=== PATIENT | male | born 1930 | race Caucasian/White ===

== ENCOUNTER 2016-11-06 16:05 | Emergency (ER) | payer MEDICARE ==
[2016-11-06] MEDS ORDERED: Naproxen 500 MG TAB ONE (16:38)
[2016-11-06] MEDS ORDERED: HYDROcodone/Acetaminophen 10/325 mg Tablet ONE (16:38)
--- NOTE | 2016-11-06 17:56 | RAD ---
TWO VIEWS LEFT SHOULDER: History: Fall. FINDINGS: AP and scapular Y views of the left shoulder demonstrate no evidence of left shoulder fracture, subl uxations, or bony lesions. IMPRESSION: Normal two views left shoulder. POS: [facility]
--- NOTE | 2016-11-06 17:57 | RAD ---
TWO VIEWS LEFT HUMERUS: Date: 11-06-16 History: Fall. FINDINGS: AP and lateral views of the left humerus obtained. The left humerus is unremarkable. No evidence of left humeral fractures, subluxations, or bony lesions seen. IMPRESSION: Normal two views left humerus. POS: [facility]
--- NOTE | 2016-11-06 17:59 | RAD ---
THREE VIEWS LEFT SHOULDER: History: Fall Technique: AP internally, externally, and scapula Y views of the left shoulder obtained. FINDINGS: Three views left shoulder demonstrate no evidence of left shoulder fractures, subluxations, or bony lesions. IMPRESSION: Normal three views left shoulder. POS: [facility]
--- NOTE | 2016-11-06 18:27 | RAD ---
THREE VIEWS LUMBAR SPINE: History: Fall, back pain. FINDINGS: AP, lateral, and coned down views of the lumbar spine obtained. Five non rib bearing lumbar vertebral are seen. Anterior osteophytes seen involving the L3, L4, and L5 levels. Disc spaces are well maintained. There is calcification of the aorta. No significant evid ence of lumbar spine abnormalities seen. IMPRESSION: Changes of spondylosis but no acute lumbar spine abnormalities seen. POS: [facility]
--- NOTE | 2016-11-06 18:29 | RAD ---
THREE VIEWS THORACIC SPINE: History: 85-year-old with history of fall. FINDINGS: AP, lateral, and swimmer's view of the thoracic spine obtained. Sternotomy wires are seen. The thoracic spine is unremarkable. No evidence of fractures, subluxatio ns, or bony lesions seen. IMPRESSION: Normal three views of the thoracic spine. POS: [facility]
--- NOTE | 2016-11-06 19:30 | CT ---
CT BRAIN WITHOUT CONTRAST: History: 85-year-old with history of fall. Technique: Noncontrast enhanced CT images of the brain obtained. FINDINGS: The brain demonstrates cortical atrophy. No evidence of acute intracranial masses, hemorrhages, stro kes or contusions seen. IMPRESSION: Unremarkable CT brain. POS: [facility]
--- NOTE | 2016-11-06 19:32 | CT ---
CT CERVICAL SPINE: History: 85-year-old who fell on a road way with neck pain. Technique: Axial images were obtained with coronal and sagittal reconstructions. FINDINGS: Images demonstrate no evidence of acute cervical spine fractures. Multilevel cervical degenerative c hanges are seen involving C3-4, C4-5, and C5-6 levels. No evidence of acute fractures seen. IMPRESSION: Changes of spondylosis. POS: [facility]
== END 2016-11-06 19:22 | disposition home or self-care (01) ==
LOC: MADERS 16:05
DX: S00.03XA Contusion of scalp, initial encounter (principal); M54.5 Low back pain; M25.512 Pain in left shoulder; M54.6 Pain in thoracic spine; I25.10 Atherosclerotic heart disease of native coronary artery without angina pectoris; N40.0 Benign prostatic hyperplasia without lower urinary tract symptoms; Z87.891 Personal history of nicotine dependence; Z79.899 Other long term (current) drug therapy; W01.0XXA Fall on same level from slipping, tripping and stumbling without subsequent striking against object, initial encounter
CPT/HCPCS: 70450; 71020; 72072; 72100; 72125

== ENCOUNTER 2016-11-28 12:13 | Outpatient (CLI) | payer MEDICARE ==
[2016-11-28 12:47] LABS: Bilirubin Negative (Negative); Blood, Urine Negative (Negative); Clarity Clear (Clear); Glucose, Urine (Dipstick) Negative (Negative); Leukocyte Negative (Negative); Nitrite Negative (Negative); Protein, Urine (Dipstick) Negative (Neg-Trace); Specific Gravity, Urine 1.015 (1.005-1.030); Urobilinogen 0.2 mg/dL (0.2-1.0); pH, Urine 6.5 (5.0-9.0)
[2016-11-28 12:54] LABS: Bacteria/HPF None Seen HPF (None Seen); RBC/HPF None Seen HPF (0-3); Squamous Epithelial 0-3 HPF (0-3); WBC/HPF None Seen HPF (0-3)
[2016-11-28 13:10] LABS: #Basophils 0.1 thou/uL (0.0-0.2); #Eosinphils 0.1 thou/uL (0.0-0.7); #Monocytes 0.3 thou/uL (0.11-0.59); #Neutrophils 2.4 thou/uL (1.40-6.50); %Basophils 2.1 % (0.0-1.0); %Eosinophils 2.9 % (0.0-10.0); %Lymphocytes 34.8 % (21.0-51.0); %Monocytes 6.9 % (0.0-10.0); %Neutrophils 53.3 % (42.0-75.0); Hemoglobin 11.8 g/dL (14.0-18.0); MDiff Complete? YES; Manual Diff?? NO; Mean Corpuscular HGB CONC 33.4 g/dL (32.0-36.0); Mean Corpuscular Hemoglobin 34.6 pg (27.0-31.0); Mean Corpuscular Volume 103.7 fl (80.0-94.0); Mean Platelet Volume 6.4 fL (7.4-10.4); Platelet Count 205 thou/uL (130-400); RBC Distribution Width 20.1 % (11.5-14.5); White Blood Cell (WBC) Count 4.4 thou/uL (4.8-10.8)
[2016-11-28 13:16] LABS: Thyroid Stimulating Hormone 3.2994 uIU/mL (0.35-4.94); Vitamin D, 25 Hydroxy 40.4 ng/mL (> 30.0)
[2016-11-28 16:13] LABS: ALT (SGPT) 13 U/L (0-55); AST (SGOT) 16 U/L (5-34); Albumin 4.2 g/dL (3.4-4.8); Alkaline Phosphatase 52 U/L (40-150); Anion Gap 11 mmol/L (10-20); BUN (Urea Nitrogen) 14 mg/dL (8.4-25.7); Bilirubin, Total 0.7 mg/dL (0.2-1.2); Calc. Creatinine Clearance 0 mL/min (70-130); Carbon Dioxide 28 mmol/L (23-31); Cardiac Risk 2.7 (Less than 4.5); Chloride 105 mmol/L (98-107); Cholesterol 130 mg/dL (< 200 Desired); Estimated GFR-MDRD 59; Globulin 1.8 g/dL (2.4-3.5); Glucose 75 mg/dL (83-110); HDL Cholesterol 48 mg/dL (>60 Neg Risk); LDL Cholesterol, Calculated 67 mg/dL; Potassium 4.2 mmol/L (3.5-5.1); Sodium 140 mmol/L (136-145); Triglycerides 76 mg/dL (Less than 150)
== END 2016-11-28 12:14 | disposition home or self-care (01) ==
LOC: MADLABBHPM 12:13
PROVIDERS: ATTEND Family Medicine
DX: I95.1 Orthostatic hypotension (principal)
CPT/HCPCS: 36415; 80053; 80061; 81001; 82306; 82607; 84443; 85025; 93005; 93010

== ENCOUNTER 2017-01-11 16:11 | Emergency (ER) | payer MEDICARE ==
[2017-01-11 17:02] LABS: #Basophils 0.1 thou/uL (0.0-0.2); #Eosinphils 0.1 thou/uL (0.0-0.7); #Lymphocytes 1.2 thou/uL (1.20-3.40); #Monocytes 0.2 thou/uL (0.11-0.59); #Neutrophils 1.8 thou/uL (1.40-6.50); %Eosinophils 3.9 % (0.0-10.0); %Lymphocytes 35.3 % (21.0-51.0); %Monocytes 6.9 % (0.0-10.0); %Neutrophils 51.8 % (42.0-75.0); Hemoglobin 11.6 g/dL (14.0-18.0); Mean Corpuscular HGB CONC 33.9 g/dL (32.0-36.0); Mean Corpuscular Hemoglobin 34.3 pg (27.0-31.0); Mean Corpuscular Volume 101.3 fl (80.0-94.0); Mean Platelet Volume 6.3 fL (7.4-10.4); PLT Morphology Comment Appears Adequate; Platelet Count 189 thou/uL (130-400); RBC Distribution Width 20.4 % (11.5-14.5); Red Blood Cell (RBC) Count 3.37 mill/uL (4.70-6.10); White Blood Cell (WBC) Count 3.4 thou/uL (4.8-10.8)
[2017-01-11 17:16] LABS: ALT (SGPT) 9 U/L (8-55); AST (SGOT) 13 U/L (5-34); Acetaminophen Less than 6.0 mcg/mL (10.0-30.0); Albumin 3.8 g/dL (3.4-4.8); Alcohol Less than 10 mg/dL (Less than 10); Alkaline Phosphatase 47 U/L (40-150); Anion Gap 14 mmol/L (10-20); BUN (Urea Nitrogen) 14 mg/dL (8.4-25.7); Bilirubin, Total 1.1 mg/dL (0.2-1.2); CKMB 0.8 ng/mL (0-6.6); Calc. Creatinine Clearance 0 mL/min (70-130); Calcium 8.7 mg/dL (7.8-10.44); Carbon Dioxide 25 mmol/L (23-31); Chloride 109 mmol/L (98-107); Estimated GFR-MDRD 59; Glucose 124 mg/dL (83-110); Protein, Total 5.8 g/dL (5.8-8.1); Salicylate Less than 8.0 mg/dL (15.0-30.0); Sodium 144 mmol/L (136-145); Troponin I Less than 0.010 ng/mL (< 0.028)
--- NOTE | 2017-01-11 17:17 | CT ---
CT OF BRAIN PERFORMED WITHOUT CONTRAST ENHANCEMENT: HISTORY: Dizziness. COMPARISON: 11/06/2016 study. FINDINGS: Marked generalized ventricular and sulcal prominence. There is decreased attenuation of the periven tricular white matter consistent with chronic white matter change. There are no signs of intracereb ral hemorrhage or extraaxial fluid collections. The mastoid air cells and visualized sinuses are cl ear. IMPRESSION: No acute intracranial abnormalities. POS: [facility]
--- NOTE | 2017-01-11 17:22 | RAD ---
SINGLE VIEW CHEST INDICATION: Altered mental status. FINDINGS: The cardiac silhouette is prominent in size. There is interstitial prominence of each lung. Mild h azy density at the left lower lung zone may relate to pleural fluid. IMPRESSION: Grossly stable chest with findings that may reflect edema. POS: [facility]
[2017-01-11 17:38] LABS: Clarity Clear (Clear); Specific Gravity, Urine 1.015 (1.005-1.030)
[2017-01-11 17:39] LABS: Bilirubin Negative (Negative); Blood, Urine Negative (Negative); Glucose, Urine (Dipstick) Negative (Negative); Leukocyte Negative (Negative); Nitrite Negative (Negative); Protein, Urine (Dipstick) Negative (Neg-Trace)
== END 2017-01-11 17:55 | disposition home or self-care (01) ==
LOC: MADERS 16:11
DX: R60.0 Localized edema (principal); I25.10 Atherosclerotic heart disease of native coronary artery without angina pectoris; E03.9 Hypothyroidism, unspecified; Z87.891 Personal history of nicotine dependence; Z79.02 Long term (current) use of antithrombotics/antiplatelets; Z79.899 Other long term (current) drug therapy
CPT/HCPCS: 70450; 71010; 80053; 80307; 81003; 82553; 83880; 84443; 84484; 85025; 93005

== ENCOUNTER 2017-02-13 14:23 | Emergency (ER) | payer MEDICARE ==
[2017-02-13 15:15] LABS: #Basophils 0.1 thou/uL (0.0-0.2); #Eosinphils 0.1 thou/uL (0.0-0.7); #Lymphocytes 1.2 thou/uL (1.20-3.40); #Monocytes 0.6 thou/uL (0.11-0.59); #Neutrophils 5.5 thou/uL (1.40-6.50); %Basophils 1.5 % (0.0-1.0); %Eosinophils 1.2 % (0.0-10.0); %Lymphocytes 15.6 % (21.0-51.0); %Monocytes 7.6 % (0.0-10.0); %Neutrophils 74.1 % (42.0-75.0); Anisocytosis SLIGHT = 6-15 cells (100X) (0-5/hpf); Hypochromia SLIGHT = 6-15 cells (100X) (0-5/hpf); MDiff Complete? YES; Mean Corpuscular HGB CONC 33.8 g/dL (32.0-36.0); Mean Corpuscular Volume 100.7 fl (80.0-94.0); Mean Platelet Volume 7.6 fL (7.4-10.4); PLT Morphology Comment Appears Adequate; Platelet Count 203 thou/uL (130-400); RBC Distribution Width 20.6 % (11.5-14.5); Red Blood Cell (RBC) Count 2.94 mill/uL (4.70-6.10); White Blood Cell (WBC) Count 7.5 thou/uL (4.8-10.8)
[2017-02-13 15:17] LABS: ALT (SGPT) 8 U/L (8-55); AST (SGOT) 12 U/L (5-34); Albumin 3.5 g/dL (3.4-4.8); Alkaline Phosphatase 42 U/L (40-150); Anion Gap 13 mmol/L (10-20); BUN (Urea Nitrogen) 18 mg/dL (8.4-25.7); Bilirubin, Total 0.8 mg/dL (0.2-1.2); Calc. Creatinine Clearance 0 mL/min (70-130); Carbon Dioxide 25 mmol/L (23-31); Chloride 108 mmol/L (98-107); Estimated GFR-MDRD 55; Globulin 2.7 g/dL (2.4-3.5); Glucose 110 mg/dL (83-110); Magnesium 2.1 mg/dL (1.6-2.6); Potassium 3.8 mmol/L (3.5-5.1); Protein, Total 6.2 g/dL (5.8-8.1); Sodium 142 mmol/L (136-145)
[2017-02-13 15:21] LABS: Troponin I Less than 0.010 ng/mL (< 0.028)
--- NOTE | 2017-02-13 15:28 | CT ---
NONCONTRAST HEAD CT: History: Altered mental status. Comparison: 01-11-17 Technique: Noncontrast head CT is performed from skull base to skull vertex. FINDINGS: No parenchymal hemorrhage. No extraaxial hematoma. No midline shift. Basilar cisterns are patent. Age appropriate atrophy. Cortical frazier-white matter differentiation is preserved. Ventricles and sulci are patent and symmetric. Persistent white matter hypodensity due to chronic sm all vessel ischemic change. Stable malacic changes in the medial right occipital lobe. Calvarium is intact. Adequate aeration of the sinuses and mastoid air cells. IMPRESSION: No acute intracranial process. POS: [facility]
--- NOTE | 2017-02-13 15:41 | RAD ---
PA AND LATERAL CHEST Comparison: 11-06-16 History: Dyspnea. FINDINGS: Heart size is borderline with post op sternotomy change. Chronic lung changes are noted. There is so me blunting to the posterior sulcus on the right which appears slightly more prominent than on the p rior exam suggesting possibly a small effusion. IMPRESSION: 1. Borderline cardiomegaly with chronic lung change. 2. Slight blunting to the right costophrenic angle and posterior sulcus suggesting there may be a sm all effusion which has developed. Clinical correlation is recommended. POS: [facility]
[2017-02-13 15:55] LABS: Bilirubin Negative (Negative); Blood, Urine Negative (Negative); Clarity Clear (Clear); Glucose, Urine (Dipstick) Negative (Negative); Leukocyte Negative (Negative); Nitrite Negative (Negative); Protein, Urine (Dipstick) Negative (Neg-Trace); Specific Gravity, Urine 1.015 (1.005-1.030); Urobilinogen 0.2 mg/dL (0.2-1.0)
[2017-02-13] MEDS ORDERED: HYDROcodone/Acetaminophen 5/325 mg Tablet ONE (16:14)
== END 2017-02-13 17:46 | disposition short-term general hospital (02) ==
LOC: MADERS 14:23
DX: R53.1 Weakness (principal); J90 Pleural effusion, not elsewhere classified; R94.31 Abnormal electrocardiogram [ECG] [EKG]; I25.10 Atherosclerotic heart disease of native coronary artery without angina pectoris; E03.9 Hypothyroidism, unspecified; Z87.891 Personal history of nicotine dependence; Z79.899 Other long term (current) drug therapy; Z79.02 Long term (current) use of antithrombotics/antiplatelets
CPT/HCPCS: 70450; 71020; 80053; 81003; 82553; 83735; 83880; 84443; 84484; 85025; 93005

== ENCOUNTER 2017-03-21 08:09 | Outpatient (CLI) | payer MEDICARE ==
[2017-03-21 08:48] LABS: Anion Gap 13 mmol/L (10-20); BUN (Urea Nitrogen) 12 mg/dL (8.4-25.7); Calc. Creatinine Clearance 0 mL/min (70-130); Calcium 8.8 mg/dL (7.8-10.44); Carbon Dioxide 28 mmol/L (23-31); Chloride 109 mmol/L (98-107); Estimated GFR-MDRD 59; Glucose 101 mg/dL (83-110); Potassium 3.5 mmol/L (3.5-5.1); Sodium 146 mmol/L (136-145)
[2017-03-21 09:33] LABS: #Basophils 0.1 thou/uL (0.0-0.2); #Eosinphils 0.1 thou/uL (0.0-0.7); #Lymphocytes 1.3 thou/uL (1.20-3.40); #Monocytes 0.3 thou/uL (0.11-0.59); #Neutrophils 2.2 thou/uL (1.40-6.50); %Eosinophils 2.4 % (0.0-10.0); %Lymphocytes 32.4 % (21.0-51.0); %Monocytes 7.4 % (0.0-10.0); %Neutrophils 55.8 % (42.0-75.0); Hemoglobin 11.1 g/dL (14.0-18.0); Mean Corpuscular Hemoglobin 33.2 pg (27.0-31.0); Mean Corpuscular Volume 100.6 fl (80.0-94.0); Mean Platelet Volume 8.5 fL (7.4-10.4); Platelet Count 200 thou/uL (130-400); RBC Distribution Width 20.7 % (11.5-14.5); Red Blood Cell (RBC) Count 3.35 mill/uL (4.70-6.10); White Blood Cell (WBC) Count 3.9 thou/uL (4.8-10.8)
== END 2017-03-21 08:10 | disposition home or self-care (01) ==
LOC: MADLABBHPM 08:09
PROVIDERS: ATTEND Family Medicine
DX: E86.0 Dehydration (principal); D53.9 Nutritional anemia, unspecified
CPT/HCPCS: 36415; 80048; 85025

== ENCOUNTER 2017-03-26 08:47 | Outpatient (CLI) | payer MEDICARE ==
[2017-03-26 10:04] LABS: Bilirubin Negative (Negative); Blood, Urine Negative (Negative); Clarity Clear (Clear); Glucose, Urine (Dipstick) Negative (Negative); Leukocyte Negative (Negative); Nitrite Negative (Negative); Protein, Urine (Dipstick) Negative (Neg-Trace)
[2017-03-26 10:43] LABS: Bacteria/HPF Rare-Few HPF (None Seen); RBC/HPF 0-3 HPF (0-3); Squamous Epithelial 0-3 HPF (0-3); WBC/HPF 0-3 HPF (0-3)
== END 2017-03-26 08:48 | disposition home or self-care (01) ==
LOC: MADLAB 08:47
PROVIDERS: ATTEND Urology
DX: R30.0 Dysuria (principal); N40.1 Benign prostatic hyperplasia with lower urinary tract symptoms
CPT/HCPCS: 36415; 81001; 87086

== ENCOUNTER 2017-04-13 14:32 | Emergency (ER) | payer MEDICARE ==
[~2017-04-13 14:32] MED LIST: Sodium Chloride 0.9% 1,000 ML BAG ONE
[2017-04-13] MEDS ORDERED: Nitroglycerin 0.4 MG TAB 1 EACH ONE (15:00)
[2017-04-13 15:29] LABS: #Basophils 0.1 thou/uL (0.0-0.2); #Eosinphils 0.1 thou/uL (0.0-0.7); #Lymphocytes 1.7 thou/uL (1.20-3.40); #Monocytes 0.3 thou/uL (0.11-0.59); #Neutrophils 2.1 thou/uL (1.40-6.50); %Basophils 2.1 % (0.0-1.0); %Eosinophils 2.8 % (0.0-10.0); %Lymphocytes 39.1 % (21.0-51.0); %Monocytes 7.7 % (0.0-10.0); %Neutrophils 48.3 % (42.0-75.0); Anisocytosis SLIGHT = 6-15 cells (100X) (0-5/hpf); Hemoglobin 12.2 g/dL (14.0-18.0); MDiff Complete? YES; Mean Corpuscular HGB CONC 33.3 g/dL (32.0-36.0); Mean Corpuscular Hemoglobin 33.2 pg (27.0-31.0); Mean Corpuscular Volume 99.9 fl (80.0-94.0); Mean Platelet Volume 7.8 fL (7.4-10.4); Ovalocytes SLIGHT = 2-5 cells (100X) (0-1/hpf); PLT Morphology Comment Appears Adequate; Platelet Count 175 thou/uL (130-400); Poikilocytosis SLIGHT = 6-15 cells (100X) (0-5/hpf); RBC Distribution Width 20.2 % (11.5-14.5); Red Blood Cell (RBC) Count 3.68 mill/uL (4.70-6.10); White Blood Cell (WBC) Count 4.3 thou/uL (4.8-10.8)
[2017-04-13 15:38] LABS: ALT (SGPT) 15 U/L (8-55); AST (SGOT) 19 U/L (5-34); Albumin 4.4 g/dL (3.4-4.8); Alkaline Phosphatase 57 U/L (40-150); Anion Gap 15 mmol/L (10-20); BUN (Urea Nitrogen) 19 mg/dL (8.4-25.7); Calc. Creatinine Clearance 0 mL/min (70-130); Calcium 8.9 mg/dL (7.8-10.44); Carbon Dioxide 23 mmol/L (23-31); Chloride 107 mmol/L (98-107); Estimated GFR-MDRD 62; Glucose 75 mg/dL (83-110); Potassium 4.2 mmol/L (3.5-5.1); Protein, Total 6.4 g/dL (5.8-8.1); Sodium 141 mmol/L (136-145)
[2017-04-13 15:40] LABS: CKMB 0.6 ng/mL (0-6.6); Troponin I Less than 0.010 ng/mL (< 0.028)
--- NOTE | 2017-04-13 15:49 | CT ---
CT OF THE BRAIN WITHOUT CONTRAST: COMPARISON: 02/13/17. HISTORY: Syncope. TECHNIQUE: Multiple contiguous axial images were obtained in a CT of the brain without contrast. FINDINGS: There are scattered hypodensities in the subcortical and periventricular white matter, likely second brianda to small-vessel ischemic disease. No large confluent infarction is seen. There is no evidence of hydrocephalus, intracranial hemorrhage, or extraaxial fluid collection. The calvarium and overlying soft tissues are unremarkable. The visualized paranasal sinuses and mas toid air cells are well aerated. IMPRESSION: No evidence of acute intracranial abnormality. POS: [facility]
--- NOTE | 2017-04-13 15:50 | RAD ---
SINGLE VIEW OF THE CHEST: COMPARISON: 01/11/17. HISTORY: Chest pain. FINDINGS: A single view of the chest shows a normal-size cardiomediastinal silhouette. The patient is status post sternotomy. There is no evidence of consolidation, mass, or pleural effusion. IMPRESSION: No evidence of acute cardiopulmonary disease. POS: [facility]
[2017-04-13] MEDS ORDERED: Dextrose 50% Abboject 50 ML SYRINGE ONE (15:58)
[2017-04-13 19:27] LABS: Bilirubin Negative (Negative); Blood, Urine Negative (Negative); Clarity Clear (Clear); Glucose, Urine (Dipstick) 100 mg/dL (Negative); Leukocyte Negative (Negative); Nitrite Negative (Negative); Protein, Urine (Dipstick) Negative (Neg-Trace); RBC/HPF 0-3 HPF (0-3); Urobilinogen 0.2 mg/dL (0.2-1.0); pH, Urine 6.5 (5.0-9.0)
[2017-04-13 19:28] LABS: Bacteria/HPF Rare-Few HPF (None Seen); Squamous Epithelial None Seen HPF (0-3); WBC/HPF None Seen HPF (0-3)
== END 2017-04-13 19:45 | disposition short-term general hospital (02) ==
LOC: MADERS 14:32
DX: I48.91 Unspecified atrial fibrillation (principal); R55 Syncope and collapse; I25.10 Atherosclerotic heart disease of native coronary artery without angina pectoris; N40.0 Benign prostatic hyperplasia without lower urinary tract symptoms; E03.9 Hypothyroidism, unspecified; Z87.891 Personal history of nicotine dependence; Z79.899 Other long term (current) drug therapy
CPT/HCPCS: 36416; 70450; 71010; 80053; 81001; 82553; 84484; 85025; 93005; 96361; 96374; J7050

== ENCOUNTER 2017-04-24 09:40 | Outpatient (CLI) | payer MEDICARE ==
[2017-04-24 10:24] LABS: #Basophils 0.1 thou/uL (0.0-0.2); #Eosinphils 0.1 thou/uL (0.0-0.7); #Lymphocytes 1.4 thou/uL (1.20-3.40); #Monocytes 0.3 thou/uL (0.11-0.59); #Neutrophils 2.9 thou/uL (1.40-6.50); %Basophils 1.9 % (0.0-1.0); %Eosinophils 2.7 % (0.0-10.0); %Lymphocytes 29.6 % (21.0-51.0); %Monocytes 6.5 % (0.0-10.0); %Neutrophils 59.4 % (42.0-75.0); Hemoglobin 11.4 g/dL (14.0-18.0); Mean Corpuscular HGB CONC 32.6 g/dL (32.0-36.0); Mean Corpuscular Hemoglobin 32.7 pg (27.0-31.0); Mean Corpuscular Volume 100.3 fl (80.0-94.0); Mean Platelet Volume 6.8 fL (7.4-10.4); Platelet Count 226 thou/uL (130-400); RBC Distribution Width 19.9 % (11.5-14.5); Red Blood Cell (RBC) Count 3.48 mill/uL (4.70-6.10); White Blood Cell (WBC) Count 4.8 thou/uL (4.8-10.8)
[2017-04-24 10:25] LABS: Anisocytosis SLIGHT = 6-15 cells (100X) (0-5/hpf); PLT Morphology Comment Appears Adequate; Poikilocytosis SLIGHT = 6-15 cells (100X) (0-5/hpf)
[2017-04-24 10:31] LABS: Anion Gap 12 mmol/L (10-20); BUN (Urea Nitrogen) 16 mg/dL (8.4-25.7); Calc. Creatinine Clearance 0 mL/min (70-130); Calcium 9.3 mg/dL (7.8-10.44); Carbon Dioxide 27 mmol/L (23-31); Chloride 107 mmol/L (98-107); Estimated GFR-MDRD 55; Glucose 102 mg/dL (83-110); Potassium 4.6 mmol/L (3.5-5.1); Sodium 141 mmol/L (136-145)
== END 2017-04-24 09:41 | disposition home or self-care (01) ==
LOC: MADLABBHPM 09:40
PROVIDERS: ATTEND Family Medicine
DX: E87.6 Hypokalemia (principal); D53.9 Nutritional anemia, unspecified
CPT/HCPCS: 36415; 80048; 85025

== ENCOUNTER 2017-04-26 09:47 | Outpatient (CLI) | payer MEDICARE ==
[2017-04-26 11:13] LABS: Bilirubin Negative (Negative); Blood, Urine Negative (Negative); Clarity Clear (Clear); Glucose, Urine (Dipstick) Negative (Negative); Leukocyte Negative (Negative); Nitrite Negative (Negative); Protein, Urine (Dipstick) Negative (Neg-Trace); Urobilinogen 0.2 mg/dL (0.2-1.0)
[2017-04-26 11:14] LABS: Bacteria/HPF Rare-Few HPF (None Seen); RBC/HPF 0-3 HPF (0-3); Squamous Epithelial 0-3 HPF (0-3); WBC/HPF 0-3 HPF (0-3)
== END 2017-04-26 09:48 | disposition home or self-care (01) ==
LOC: MADLAB 09:47
PROVIDERS: ATTEND Urology
DX: N40.1 Benign prostatic hyperplasia with lower urinary tract symptoms (principal); R30.0 Dysuria
CPT/HCPCS: 36415; 81001; 87086

== ENCOUNTER 2017-10-29 15:51 | Outpatient (CLI) | payer MEDICARE ==
[2017-10-29 16:20] LABS: Bilirubin Negative (Negative); Blood, Urine Negative (Negative); Clarity Clear (Clear); Glucose, Urine (Dipstick) Negative (Negative); Leukocyte Negative (Negative); Nitrite Negative (Negative); Protein, Urine (Dipstick) Negative (Neg-Trace)
[2017-10-29 17:00] LABS: Bacteria/HPF 1+ HPF (None Seen); RBC/HPF 0-3 HPF (0-3); WBC/HPF 0-3 HPF (0-3)
== END 2017-10-29 15:52 | disposition home or self-care (01) ==
LOC: MADLABBHPM 15:51
PROVIDERS: ATTEND Family Medicine
DX: R30.0 Dysuria (principal)
CPT/HCPCS: 81001; 87086

== ENCOUNTER 2017-11-01 09:04 | Outpatient (CLI) | payer MEDICARE ==
--- NOTE | 2017-11-01 11:27 | ULT ---
BILATERAL RENAL ULTRASOUND: Date: 11/01/17 HISTORY: Chronic renal disease. FINDINGS: The right kidney measures 9.2 cm in length and the left kidney measures 10.9 cm in length. No focal m ass or hydronephrosis is seen on either side. There is mild cortical thinning. Urinary bladder is unr emarkable. IMPRESSION: Mild cortical thinning. No evidence of high grade obstruction. POS: [facility]
== END 2017-11-01 09:05 | disposition home or self-care (01) ==
LOC: MADULT 09:04
PROVIDERS: ATTEND Family Medicine
DX: N18.3 Chronic kidney disease, stage 3 (moderate) (principal); N28.89 Other specified disorders of kidney and ureter
CPT/HCPCS: 76770

== ENCOUNTER 2020-07-08 10:14 | Emergency (ER) | payer MEDICARE ==
--- NOTE | 2020-07-08 10:50 | RAD ---
RADIOGRAPH RIGHT SHOULDER 3VIEWS: DATE: 07/08/2020 HISTORY: 89-year-old male with acute, traumatic right shoulder pain after fall. FINDINGS: There is no dislocation. No fracture is identified. There is diffuse osteopenia. IMPRESSION: No fracture identified.
--- NOTE | 2020-07-08 10:53 | CT ---
CT CERVICAL SPINE WITHOUT CONTRAST: Date: 07/08/2020 HISTORY: Fall, neck pain. COMPARISON: 11/06/2016. FINDINGS: There is loss of cervical lordosis with mild reversal. Degenerative changes are again seen. No acute fracture, subluxation, or facet malalignment is identified. The prevertebral soft tissues are normal. There is scarring in the lung apices. IMPRESSION: No CT evidence of acute cervical spine fracture or traumatic subluxation. POS: [facility]
--- NOTE | 2020-07-08 10:54 | CT ---
CT BRAIN WITHOUT CONTRAST: HISTORY: Fall. No loss of consciousness. Headache. COMPARISON: 04/13/2017. FINDINGS: Changes of cortical atrophy and chronic small-vessel ischemic disease are again seen. The ventricula r size is appropriate and the basilar cisterns are patent. No evidence of acute infarct, hemorrhage, midline shift, or abnormal extraaxial fluid collections are seen. The bony calvarium is intact. The visualized paranasal sinuses and mastoid air cells are wel l aerated. IMPRESSION: No Ct evidence of acute intracranial process. POS: [facility]
== END 2020-07-08 11:37 | disposition home or self-care (01) ==
LOC: MADERS 10:14
DX: S13.9XXA Sprain of joints and ligaments of unspecified parts of neck, initial encounter (principal); S40.011A Contusion of right shoulder, initial encounter; N40.0 Benign prostatic hyperplasia without lower urinary tract symptoms; E03.9 Hypothyroidism, unspecified; Z79.82 Long term (current) use of aspirin; Z79.899 Other long term (current) drug therapy; W19.XXXA Unspecified fall, initial encounter
CPT/HCPCS: 70450; 72125; 94760

== ENCOUNTER 2020-07-10 12:48 | Emergency (ER) | payer MEDICARE ==
[2020-07-10] MEDS ORDERED: Bacitracin 1 PK ONE ×2 (12:53→12:57)
[2020-07-10 13:35] LABS: ALT (SGPT) 11 U/L (8-55); AST (SGOT) 15 U/L (5-34); Albumin 4.1 g/dL (3.4-4.8); Alkaline Phosphatase 57 U/L (40-110); Anion Gap 17 mmol/L (10-20); BUN (Urea Nitrogen) 15 mg/dL (8.4-25.7); Bilirubin, Total 1.4 mg/dL (0.2-1.2); Calc. Creatinine Clearance 0 mL/min (70-130); Calcium 8.8 mg/dL (7.8-10.44); Carbon Dioxide 21 mmol/L (23-31); Chloride 109 mmol/L (98-107); Glucose 119 mg/dL (83-110); Magnesium 2.3 mg/dL (1.6-2.6); Potassium 3.8 mmol/L (3.5-5.1); Protein, Total 6.1 g/dL (5.8-8.1); Sodium 143 mmol/L (136-145)
[2020-07-10 13:44] LABS: #Basophils 0.1 thou/uL (0.0-0.2); #Eosinphils 0.1 thou/uL (0.0-0.7); #Lymphocytes 1.1 thou/uL (1.20-3.40); #Monocytes 0.3 thou/uL (0.11-0.59); #Neutrophils 2.8 thou/uL (1.40-6.50); %Basophils 2.6 % (0.0-1.0); %Eosinophils 1.4 % (0.0-10.0); %Lymphocytes 24.7 % (21.0-51.0); %Monocytes 6.6 % (0.0-10.0); %Neutrophils 64.7 % (42.0-75.0); Anisocytosis MARKED = >30 cells (100X) (0-5/hpf); Hemoglobin 10.4 g/dL (14.0-18.0); Hypochromia SLIGHT = 6-15 cells (100X) (0-5/hpf); MDiff Complete? YES; Mean Corpuscular HGB CONC 33.7 g/dL (32.0-36.0); Mean Corpuscular Hemoglobin 33.5 pg (27.0-31.0); Mean Corpuscular Volume 99.4 fL (78.0-98.0); Mean Platelet Volume 8.5 fL (7.4-10.4); Platelet Count 241 thou/uL (130-400); Polychromasia SLIGHT = 2-3 cells (100X) (0-2/hpf); RBC Distribution Width 20.5 % (11.5-14.5); Red Blood Cell (RBC) Count 3.11 mill/uL (4.70-6.10); Target Cells SLIGHT = 2-5 cells (100X) (0-1/hpf); White Blood Cell (WBC) Count 4.3 thou/uL (4.8-10.8)
--- NOTE | 2020-07-10 13:50 | CT ---
CT HEAD WITHOUT CONTRAST: 07/10/20 INDICATIONS: Recent fall with injury to head. COMPARISON: 07/08/20. Cortical atrophy and chronic ischemic white matter changes are stable. There is no evidence of intrac ranial hemorrhage. No infarct or mass seen. No interval change. IMPRESSION: No acute process. POS: [facility]
--- NOTE | 2020-07-10 13:52 | RAD ---
RIGHT FOREARM: 07/10/20 HISTORY: Fall with injury. Two views. FINDINGS/IMPRESSION: Degenerative changes at the wrist and elbow. Slight angulation in the mid radius may represent old in jury. No acute fracture identified. Arterial calcification noted. POS: [facility]
--- NOTE | 2020-07-10 14:36 | RAD ---
AP CHEST: 07/10/20 HISTORY: Mental status change. Syncope. COMPARISON: 04/13/17. There is hazy ground glass type infiltrate in both lower lungs. Upper lung trammell appear clear. Vascu lar markings normal. Heart size upper normal but stable. Postop sternotomy change seen. Dual lead pac emaker device is noted. IMPRESSION: Suspicion of ground glass type infiltrates in the lower lungs slightly more prominent on the right. POS: [facility]
== END 2020-07-10 16:00 | disposition short-term general hospital (02) ==
LOC: MADERS 12:48
DX: S51.011A Laceration without foreign body of right elbow, initial encounter (principal); S61.411A Laceration without foreign body of right hand, initial encounter; M25.531 Pain in right wrist; E05.90 Thyrotoxicosis, unspecified without thyrotoxic crisis or storm; I25.10 Atherosclerotic heart disease of native coronary artery without angina pectoris; I25.2 Old myocardial infarction; N40.0 Benign prostatic hyperplasia without lower urinary tract symptoms; E03.9 Hypothyroidism, unspecified; Z79.899 Other long term (current) drug therapy; Z79.82 Long term (current) use of aspirin; W19.XXXA Unspecified fall, initial encounter
CPT/HCPCS: 70450; 71045; 80053; 83735; 84443; 84484; 85025; 93005